=== PATIENT | male | born 1995 | race Hispanic/Latino ===

== ENCOUNTER 2018-09-20 10:33 | Emergency (ER) | payer SELFPAY ==
[2018-09-20] MEDS ORDERED: IBUPROFEN 600 MG TABLET ONE (11:20)
== END 2018-09-20 11:49 | disposition home or self-care (01) ==
LOC: EDH 10:33
DX: S93.491A Sprain of other ligament of right ankle, initial encounter (principal); W22.8XXA Striking against or struck by other objects, initial encounter; Y93.89 Activity, other specified; Y92.098 Other place in other non-institutional residence as the place of occurrence of the external cause; Y99.8 Other external cause status
CPT/HCPCS: 73610